=== PATIENT | female | born 1930 | race Caucasian/White ===

== ENCOUNTER 2021-09-27 20:07 | Inpatient (IN) | payer MEDICARE, BC ==
[~2021-09-27] VITALS: Ht 152.4 cm; Wt 62.2 kg
[2021-09-27 20:57] LABS: Eosinophils # (auto) 0.1 10 ^3/uL (0-0.8); Hemoglobin 10.5 g/dL (12.2-16.2); Lymphocytes # (auto) 1.1 10 ^3/uL (0.4-5.4); Monocytes # (auto) 0.4 10 ^3/uL (0-1.3); White Blood Cell 17.8 10^3/uL (4.4-10.8)
[2021-09-27 20:59] LABS: Basophils # (auto) 0 10 ^3/uL (0-0.2); Basophils % (auto) 0.1 % (0.0-2.0); Eosinophils % (auto) 0.4 % (0.0-7.0); Hematocrit 31.8 % (36.0-46.0); Lymphocytes % (auto) 6.4 % (10.0-50.0); Mean Corpuscular Hemoglobin 31.3 pg (28.0-32.0); Mean Corpuscular Volume 94.8 fL (80.0-100.0); Monocytes % (auto) 2.1 % (0.0-12.0); Neutrophils # (auto) 16.2 10 ^3/uL (1.6-8.6); Nucleated Red Blood Cells % 0.2 %; Red Blood Cells 3.36 10^6/uL (4.0-5.20)
[2021-09-27 21:13] LABS: Albumin 2.4 g/dL (3.4-5.0); Calcium 8.4 mg/dL (8.5-10.1); Potassium 4.1 mmol/L (3.5-5.1)
[2021-09-27 21:19] LABS: BUN/Creatinine Ratio 66.2; Bilirubin, Total 0.6 mg/dL (0.2-1.0); Total Protein 7.3 g/dL (6.4-8.2)
[2021-09-27] MEDS ORDERED: SODIUM CHLORIDE 0.9% 500 ML IV ONE (21:30)
[2021-09-27] MEDS ORDERED: AMIODARONE HCL (50 MG/ ML) 3 ML VIAL IV ONE (21:44)
[2021-09-27] MEDS ORDERED: AMIODARONE HCL 150 MG in D5W 5% 100 ML IV ONE (21:45)
[2021-09-27] MEDS ORDERED: AMIODARONE 450mg/250ml AE 250 ML IV ONE (21:46)
[2021-09-27] MEDS ORDERED: SODIUM CHLORIDE 0.9% 1,000 ML IV ONE (22:00)
[2021-09-27] MEDS ORDERED: fentaNYL CITRATE 100 MCG/2 ML VL IV ONE (22:45)
[2021-09-27] MEDS ORDERED: ONDANSETRON HCL 4 MG/2 ML VIAL IV ONE (22:45)
[2021-09-27] MEDS ORDERED: AZITHROMYCIN 500MG/ 250ML 250 ML IV ONE (22:45)
[2021-09-27] MEDS ORDERED: cefTRIAXone 1GM/50ML D5W 50 ML IV ONE (22:45)
[2021-09-27 23:13] LABS: Lactic Acid w/Reflex 2.8 mmol/L (0.4-2.0)
[2021-09-27] MEDS ORDERED: AMIODARONE 450mg/250ml AE 250 ML IV SCH (23:30)
[2021-09-28] MEDS: SODIUM CHLORIDE 0.9% 1,000 ML IV SCH ×3 (01:30→18:24)
[2021-09-28] MEDS ORDERED: ONDANSETRON HCL 4 MG/2 ML VIAL IV PRN (01:30)
[2021-09-28] MEDS ORDERED: DOCUSATE SOD 100 MG CAP PO PRN (01:30)
[2021-09-28] MEDS ORDERED: ACETAMINOPHEN 325 MG TAB PO PRN (01:30)
[2021-09-28 01:52] LABS: Urine Bacteria MANY /hpf (None Seen); Urine Blood Negative /uL (Negative); Urine Hyaline Cast FEW /lpf (0 - 2); Urine Mucus FEW (None Seen); Urine Specific Gravity 1.022 (1.001-1.035); Urine WBC 6 /hpf (0 - 5)
[2021-09-28] MEDS ORDERED: MORPHINE SULFATE INJECTION 2 MG/ML SYRG IV PRN (02:15)
[2021-09-28] MEDS ORDERED: NITROGLYCERIN 0.4 MG SL TAB SL PRN (02:15)
[2021-09-28] MEDS ORDERED: MEROPENEM 1GM IVPB 100 ML IV ONE ×2 (02:18→02:30)
[2021-09-28] MEDS: guaiFENesin-DM 100/10mg/5ml SYR PO PRN ×2 (02:39→12:18)
[2021-09-28 04:27] LABS: Basophils # (auto) 0 10 ^3/uL (0-0.2); Basophils % (auto) 0.2 % (0.0-2.0); Eosinophils # (auto) 0 10 ^3/uL (0-0.8); Eosinophils % (auto) 0.2 % (0.0-7.0); Hematocrit 25.7 % (36.0-46.0); Hemoglobin 8.7 g/dL (12.2-16.2); Lymphocytes # (auto) 0.6 10 ^3/uL (0.4-5.4); Lymphocytes % (auto) 3.7 % (10.0-50.0); Mean Corpuscular Hemoglobin 32.3 pg (28.0-32.0); Mean Corpuscular Hgb Conc. 33.9 g/dL (32.0-36.0); Mean Corpuscular Volume 95.2 fL (80.0-100.0); Monocytes # (auto) 0.4 10 ^3/uL (0-1.3); Monocytes % (auto) 2.3 % (0.0-12.0); Neutrophils # (auto) 15.5 10 ^3/uL (1.6-8.6); Neutrophils % (auto) 93.6 % (37.0-80.0); Nucleated Red Blood Cells % 0.2 %; Red Blood Cells 2.69 10^6/uL (4.0-5.20); Red Cell Distribution Width 15.8 % (11.8-14.3); White Blood Cell 16.5 10^3/uL (4.4-10.8)
[2021-09-28 04:37] LABS: Albumin 1.7 g/dL (3.4-5.0); Potassium 3.4 mmol/L (3.5-5.1)
[2021-09-28 04:41] LABS: BUN/Creatinine Ratio 79.5; Bilirubin, Total 0.5 mg/dL (0.2-1.0); Total Protein 5.2 g/dL (6.4-8.2)
[2021-09-28 05:00] VITALS: BP 95/59
[2021-09-28] MEDS: HYDROcodone-ACET 5/325MG TAB PO PRN (05:35)
[2021-09-28 06:01] VITALS: BP 95/59
[2021-09-28] MEDS: LEVOTHYROXINE SODIUM 88 MCG TAB PO SCH (06:33)
[2021-09-28] MEDS ORDERED: IBUP600T28 PO (06:43)
[2021-09-28] MEDS ORDERED: RISP1TAB PO (06:43)
[2021-09-28 08:44] VITALS: BP 107/71
[2021-09-28] MEDS ORDERED: AMIODARONE HCL 200 MG TAB PO ONE (08:45)
[2021-09-28] MEDS ORDERED: DIGOXIN 0.25 MG TAB PO ONE (08:45)
[2021-09-28] MEDS ORDERED: DEXTROSE (50%) 50ML SYRG IV PRN (09:00)
[2021-09-28] MEDS ORDERED: cefTRIAXone 1GM/50ML D5W 50 ML IV SCH (09:00)
[2021-09-28] MEDS ORDERED: AZITHROMYCIN 500MG/ 250ML 250 ML IV SCH (10:00)
[2021-09-28] MEDS: FAMOTIDINE (10MG/ML) 2ML VL IV SCH ×2 (10:12→21:45)
[2021-09-28] MEDS: ASPirin 81 mg TAB PO SCH (10:12)
[2021-09-28] MEDS: DIGOXIN (250MCG/ML) 2 ML AMPULE IV SCH ×3 (10:13→18:08)
[2021-09-28] MEDS: HEPARIN SODIUM (PORCINE) 5000 UNITS/ML 1ML VIAL SC SCH ×2 (10:29→21:47)
[2021-09-28] MEDS: MULTIPLE VITAMIN TAB PO SCH (10:33)
[2021-09-28] MEDS: ASCORBIC ACID 500 MG TAB PO SCH ×2 (10:33→21:46)
[2021-09-28] MEDS: ZINC SULFATE 220mg CAP or TAB PO SCH (10:33)
[2021-09-28] MEDS: InsuLIN REG 1unit/0.01ml Soln (100units/ml) SC SCH ×3 (11:30→22:00)
[2021-09-28] MEDS: ACCU-CHEK COMFORT CURVE STRIP VI SCH ×3 (12:06→22:19)
[2021-09-28] MEDS: PIPERACILLIN-TAZOB 3.375GM 100 ML IV SCH ×2 (14:15→21:46)
[2021-09-28] MEDS: ALBUTEROL SULF 2.5 MG/0.5ML(0.5%) NEB SOLN NEB PRN (14:54)
[2021-09-28 14:56] VITALS: BP 112/70
[2021-09-28 17:02] VITALS: BP 142/59
[2021-09-28] MEDS: FUROSEMIDE 20 MG/2 ML VIAL IV SCH (18:09)
[2021-09-28 22:00] VITALS: BP 98/51
[2021-09-29] VITALS (7 sets, daily range): BP systolic 91–104; BP diastolic 48–57
[2021-09-29] MEDS: guaiFENesin-DM 100/10mg/5ml SYR PO PRN ×2 (00:52→22:59)
[2021-09-29] MEDS ORDERED: DIGOXIN 0.25 MG TAB PO SCH ×2 (01:30→10:00)
[2021-09-29 02:08] LABS: Urine Bacteria NONE SEEN /hpf (None Seen); Urine Blood Negative /uL (Negative); Urine Hyaline Cast FEW /lpf (0 - 2); Urine Mucus FEW (None Seen); Urine Specific Gravity 1.022 (1.001-1.035); Urine WBC 5 /hpf (0 - 5)
[2021-09-29 02:26] LABS: Creatinine, Urine 52 mg/dL (30.0-125.0); Sodium Urine 22 mmol/L (40-220)
[2021-09-29] MEDS: PIPERACILLIN-TAZOB 3.375GM 100 ML IV SCH ×3 (06:28→22:31)
[2021-09-29] MEDS: FUROSEMIDE 20 MG/2 ML VIAL IV SCH ×2 (06:28→18:00)
[2021-09-29] MEDS: ACCU-CHEK COMFORT CURVE STRIP VI SCH ×4 (06:29→22:31)
[2021-09-29] MEDS: HYDROcodone-ACET 5/325MG TAB PO PRN ×2 (06:29→13:32)
[2021-09-29] MEDS: InsuLIN REG 1unit/0.01ml Soln (100units/ml) SC SCH ×4 (06:29→22:31)
[2021-09-29] MEDS: LEVOTHYROXINE SODIUM 88 MCG TAB PO SCH ×2 (06:29→09:42)
[2021-09-29 07:15] LABS: Potassium 3.4 mmol/L (3.5-5.1)
[2021-09-29 07:28] LABS: Albumin 1.8 g/dL (3.4-5.0); BUN/Creatinine Ratio 61.1; Bilirubin, Total 0.7 mg/dL (0.2-1.0); Calcium 7.3 mg/dL (8.5-10.1)
[2021-09-29 07:42] LABS: Hematocrit 25.6 % (36.0-46.0); Hemoglobin 8.8 g/dL (12.2-16.2); Mean Corpuscular Hemoglobin 32.8 pg (28.0-32.0); Mean Corpuscular Hgb Conc. 34.5 g/dL (32.0-36.0); Mean Corpuscular Volume 95.1 fL (80.0-100.0); Red Cell Distribution Width 15.4 % (11.8-14.3)
[2021-09-29 08:13] LABS: Basophils % (manual) 0 (0.0-2.0); Blast Cells 0; Eosinophils % (manual) 0 (0-7); Metamyelocytes % 0; Myelocytes % 0; Promyelocytes % 0; Reactive Lymphocytes 0
[2021-09-29] MEDS: ALBUTEROL SULF 2.5 MG/0.5ML(0.5%) NEB SOLN NEB PRN (09:22)
[2021-09-29] MEDS: ASPirin 81 mg TAB PO SCH (09:41)
[2021-09-29] MEDS: ASCORBIC ACID 500 MG TAB PO SCH ×2 (09:41→22:31)
[2021-09-29] MEDS: AMIODARONE HCL 200 MG TAB PO SCH (09:41)
[2021-09-29] MEDS: MULTIPLE VITAMIN TAB PO SCH (09:42)
[2021-09-29] MEDS: ZINC SULFATE 220mg CAP or TAB PO SCH (09:42)
[2021-09-29] MEDS: DIGOXIN 0.125 MG TAB PO SCH (09:43)
[2021-09-29] MEDS: FAMOTIDINE (10MG/ML) 2ML VL IV SCH ×2 (09:43→22:30)
[2021-09-29] MEDS: HEPARIN SODIUM (PORCINE) 5000 UNITS/ML 1ML VIAL SC SCH ×2 (09:50→22:32)
[2021-09-29 12:14] LABS: Band Neutrophils % (manual) 12; Lymphocytes % (manual) 5 (10.0-50.0); Monocytes % (manual) 6 (0-12)
[2021-09-29] MEDS: SODIUM CHLORIDE 0.9% 1,000 ML IV SCH (22:30)
[2021-09-29] MEDS: POTASSIUM CHL 20 Meq TABLET PO SCH (22:31)
[2021-09-30 05:00] VITALS: BP 117/40
[2021-09-30] MEDS: PIPERACILLIN-TAZOB 3.375GM 100 ML IV SCH ×2 (06:31→15:03)
[2021-09-30] MEDS: FUROSEMIDE 20 MG/2 ML VIAL IV SCH (06:31)
[2021-09-30] MEDS: ACCU-CHEK COMFORT CURVE STRIP VI SCH ×3 (06:31→17:24)
[2021-09-30] MEDS: InsuLIN REG 1unit/0.01ml Soln (100units/ml) SC SCH ×3 (06:32→17:00)
[2021-09-30] MEDS: guaiFENesin-DM 100/10mg/5ml SYR PO PRN (06:32)
[2021-09-30] MEDS: ALBUTEROL SULF 2.5 MG/0.5ML(0.5%) NEB SOLN NEB PRN (07:22)
[2021-09-30 09:08] VITALS: BP 105/50
[2021-09-30] MEDS: HYDROcodone-ACET 5/325MG TAB PO PRN ×2 (09:20→15:03)
[2021-09-30] MEDS: ZINC SULFATE 220mg CAP or TAB PO SCH (09:20)
[2021-09-30] MEDS: ASPirin 81 mg TAB PO SCH (09:20)
[2021-09-30] MEDS: FAMOTIDINE (10MG/ML) 2ML VL IV SCH (09:20)
[2021-09-30] MEDS: AMIODARONE HCL 200 MG TAB PO SCH (09:21)
[2021-09-30] MEDS: DIGOXIN 0.125 MG TAB PO SCH (09:21)
[2021-09-30] MEDS: POTASSIUM CHL 20 Meq TABLET PO SCH (09:21)
[2021-09-30] MEDS: MULTIPLE VITAMIN TAB PO SCH (09:22)
[2021-09-30] MEDS: ASCORBIC ACID 500 MG TAB PO SCH (09:22)
[2021-09-30] MEDS: HEPARIN SODIUM (PORCINE) 5000 UNITS/ML 1ML VIAL SC SCH (09:25)
[2021-09-30 13:00] VITALS: BP 106/66
[2021-09-30 16:44] VITALS: BP 117/40
[2021-09-30 17:07] VITALS: BP 137/63
== END 2021-09-30 18:00 | disposition hospice, home (50) | DRG 871 ==
LOC: ER 20:07 → TELE 09-28 02:17 → TELE-WESTW 09-28 04:21
PROVIDERS: ADMIT Nurse Practitioner Family; ATTEND Internal Medicine
PROC: 05HB33Z Insertion of Infusion Device into Right Basilic Vein, Percutaneous Approach (ICD-10-PCS; principal; 2021-09-28)
PROC: B54MZZA Ultrasonography of Right Upper Extremity Veins, Guidance (ICD-10-PCS; 2021-09-28)
DX: A41.9 Sepsis, unspecified organism (principal); J69.0 Pneumonitis due to inhalation of food and vomit; N17.0 Acute kidney failure with tubular necrosis; E44.0 Moderate protein-calorie malnutrition; D68.69 Other thrombophilia; I48.19 Other persistent atrial fibrillation; E88.09 Other disorders of plasma-protein metabolism, not elsewhere classified; F02.80 Dementia in other diseases classified elsewhere, unspecified severity, without behavioral disturbance, psychotic disturbance, mood disturbance, and anxiety; G30.9 Alzheimer's disease, unspecified; E86.0 Dehydration; E03.9 Hypothyroidism, unspecified; E86.9 Volume depletion, unspecified; D64.9 Anemia, unspecified; Z20.822 Contact with and (suspected) exposure to COVID-19; E11.65 Type 2 diabetes mellitus with hyperglycemia; Z68.26 Body mass index [BMI] 26.0-26.9, adult; Z85.3 Personal history of malignant neoplasm of breast; Z51.5 Encounter for palliative care; Z90.10 Acquired absence of unspecified breast and nipple
CPT/HCPCS: 36415; 71045; 76881; 80053; 81001; 82570; 82962; 83036; 83605; 83735; 84300; 84484; 85007; 85025; 85027; 85379; 87040; 87426; 92610; 93005; 94640; 96365; 96366; 96367; 96375; 97163; G0378; J0696; J2185; J2405; J2543; J3490; J7060

== ENCOUNTER 2021-12-26 14:03 | Inpatient (IN) | payer OTHER, MEDICARE, BC ==
[~2021-12-26] VITALS: Ht 152.4 cm; Wt 49.9 kg
[~2021-12-26 14:03] MED LIST: IBUP600T28 PO; RISP1TAB PO
[2021-12-26] MEDS ORDERED: cefTRIAXone 1GM/50ML D5W 50 ML IV ONE (14:45)
[2021-12-26 15:42] LABS: Basophils # (auto) 0 10 ^3/uL (0-0.2); Basophils % (auto) 0.6 % (0.0-2.0); Eosinophils # (auto) 0 10 ^3/uL (0-0.8); Eosinophils % (auto) 0.2 % (0.0-7.0); Hematocrit 35.4 % (36.0-46.0); Hemoglobin 12.3 g/dL (12.2-16.2); Lymphocytes # (auto) 0.7 10 ^3/uL (0.4-5.4); Lymphocytes % (auto) 10.3 % (10.0-50.0); Mean Corpuscular Hemoglobin 32.7 pg (28.0-32.0); Mean Corpuscular Hgb Conc. 34.7 g/dL (32.0-36.0); Mean Corpuscular Volume 94.3 fL (80.0-100.0); Monocytes # (auto) 0.3 10 ^3/uL (0-1.3); Monocytes % (auto) 4.8 % (0.0-12.0); Neutrophils # (auto) 5.4 10 ^3/uL (1.6-8.6); Neutrophils % (auto) 84.1 % (37.0-80.0); Nucleated Red Blood Cells % 0.2 %; Red Blood Cells 3.76 10^6/uL (4.0-5.20); Red Cell Distribution Width 16.5 % (11.8-14.3); White Blood Cell 6.5 10^3/uL (4.4-10.8)
[2021-12-26 16:00] LABS: Albumin 3.6 g/dL (3.4-5.0); Potassium 4.1 mmol/L (3.5-5.1)
[2021-12-26 16:03] LABS: BUN/Creatinine Ratio 32.7; Bilirubin, Total 0.5 mg/dL (0.2-1.0); Total Protein 7.6 g/dL (6.4-8.2)
[2021-12-26 16:20] LABS: INR 1.04 (0.9-1.15); Partial Thromboplastin Time 29.5 sec (23.6-33.0)
[2021-12-26] MEDS ORDERED: CLINDAMYCIN 300MG IV 50 ML IV ONE (17:15)
[2021-12-26] MEDS ORDERED: SODIUM CHLORIDE 0.9% 1,000 ML IV ONE (17:15)
[2021-12-26] MEDS ORDERED: NITROGLYCERIN 0.4 MG SL TAB SL PRN (18:30)
[2021-12-26] MEDS ORDERED: MORPHINE SULFATE INJECTION 2 MG/ML SYRG IV PRN (18:30)
[2021-12-26] MEDS ORDERED: VANCOMYCIN PER PHARMACY 0 MG IV SCH (21:00)
[2021-12-26] MEDS ORDERED: VANCOMYCIN 500 MG in D5W 5% 100 ML IV ONE (21:15)
[2021-12-26] MEDS ORDERED: ONDANSETRON HCL 4 MG/2 ML VIAL IV PRN (21:15)
[2021-12-26] MEDS ORDERED: ACETAMINOPHEN 325 MG TAB PO PRN (21:15)
[2021-12-26 22:00] VITALS: BP 118/78
[2021-12-26] MEDS ORDERED: PIPERACILLIN-TAZOB 3.375GM 100 ML IV SCH (22:00)
[2021-12-26] MEDS: risperiDONE 1 MG TAB PO SCH (23:55)
[2021-12-26] MEDS: PIPERACILLIN-TAZOB 2.25GM 50 ML IV SCH (23:55)
[2021-12-27] MEDS: SODIUM CHLORIDE 0.9% 1,000 ML IV SCH ×2 (00:11→14:40)
[2021-12-27 05:00] VITALS: BP 113/63
[2021-12-27 05:55] LABS: Basophils # (auto) 0 10 ^3/uL (0-0.2); Basophils % (auto) 0.9 % (0.0-2.0); Eosinophils # (auto) 0 10 ^3/uL (0-0.8); Eosinophils % (auto) 0.2 % (0.0-7.0); Hematocrit 33.4 % (36.0-46.0); Hemoglobin 11.4 g/dL (12.2-16.2); Lymphocytes # (auto) 0.8 10 ^3/uL (0.4-5.4); Lymphocytes % (auto) 18.8 % (10.0-50.0); Mean Corpuscular Hemoglobin 32.3 pg (28.0-32.0); Mean Corpuscular Hgb Conc. 34.1 g/dL (32.0-36.0); Mean Corpuscular Volume 94.8 fL (80.0-100.0); Monocytes # (auto) 0.2 10 ^3/uL (0-1.3); Neutrophils # (auto) 3.1 10 ^3/uL (1.6-8.6); Neutrophils % (auto) 74.1 % (37.0-80.0); Nucleated Red Blood Cells % 0.2 %; Red Blood Cells 3.52 10^6/uL (4.0-5.20); Red Cell Distribution Width 16.5 % (11.8-14.3); White Blood Cell 4.2 10^3/uL (4.4-10.8)
[2021-12-27 06:08] LABS: CRP High Sensitivity 0.82 mg/dL (< 0.3)
[2021-12-27] MEDS: PIPERACILLIN-TAZOB 2.25GM 50 ML IV SCH ×2 (06:26→14:39)
[2021-12-27 09:04] VITALS: BP 119/77
[2021-12-27 09:57] LABS: Calcium 8.8 mg/dL (8.5-10.1); Potassium 3.6 mmol/L (3.5-5.1)
[2021-12-27] MEDS: ENOXAPARIN SOD 30 MG/0.3 ML SYRINGE SC SCH (10:04)
[2021-12-27 10:12] LABS: BUN/Creatinine Ratio 29.2
[2021-12-27 13:00] VITALS: BP 150/72
[2021-12-27] MEDS: VANCOMYCIN 500 MG in D5W 5% 100 ML IV SCH (17:05)
[2021-12-27 18:00] VITALS: BP 172/82
[2021-12-27] MEDS: hydrALAZINE HCL 20 MG/ML VL IV PRN (18:35)
[2021-12-27 21:53] VITALS: BP 108/66
[2021-12-28] MEDS: PIPERACILLIN-TAZOB 2.25GM 50 ML IV SCH ×4 (00:05→23:31)
[2021-12-28] MEDS: risperiDONE 1 MG TAB PO SCH ×2 (00:05→23:34)
[2021-12-28 05:00] VITALS: BP 111/51
[2021-12-28] MEDS: SODIUM CHLORIDE 0.9% 1,000 ML IV SCH (05:43)
[2021-12-28 05:45] LABS: Basophils # (auto) 0.1 10 ^3/uL (0-0.2); Basophils % (auto) 1.1 % (0.0-2.0); Eosinophils # (auto) 0 10 ^3/uL (0-0.8); Eosinophils % (auto) 0.2 % (0.0-7.0); Hematocrit 32.6 % (36.0-46.0); Hemoglobin 11.5 g/dL (12.2-16.2); Lymphocytes # (auto) 0.7 10 ^3/uL (0.4-5.4); Lymphocytes % (auto) 13.4 % (10.0-50.0); Mean Corpuscular Hemoglobin 33.1 pg (28.0-32.0); Mean Corpuscular Hgb Conc. 35.3 g/dL (32.0-36.0); Mean Corpuscular Volume 93.8 fL (80.0-100.0); Monocytes # (auto) 0.2 10 ^3/uL (0-1.3); Neutrophils # (auto) 4.4 10 ^3/uL (1.6-8.6); Neutrophils % (auto) 81.3 % (37.0-80.0); Red Blood Cells 3.47 10^6/uL (4.0-5.20); Red Cell Distribution Width 16.6 % (11.8-14.3); White Blood Cell 5.4 10^3/uL (4.4-10.8)
[2021-12-28 06:13] LABS: Potassium 3.4 mmol/L (3.5-5.1)
[2021-12-28 06:23] LABS: BUN/Creatinine Ratio 31.7; Calcium 8.1 mg/dL (8.5-10.1)
[2021-12-28 09:00] VITALS: BP 134/75
[2021-12-28] MEDS: SOD CHL 0.9%/ KCL 20MEQ 1,000 ML IV SCH (09:42)
[2021-12-28] MEDS: ENOXAPARIN SOD 30 MG/0.3 ML SYRINGE SC SCH (09:42)
[2021-12-28 13:00] VITALS: BP 146/67
[2021-12-28] MEDS: VANCOMYCIN 500 MG in D5W 5% 100 ML IV SCH (16:30)
[2021-12-28 17:00] VITALS: BP_SYST 136; BP_SYST 146; BP_DIAS 67; BP_DIAS 87
[2021-12-28] MEDS: Ensure HIGH Protein Chocolate 8oz Bottle PO SCH (18:39)
[2021-12-28 22:00] VITALS: BP 116/59
[2021-12-29 04:27] VITALS: BP 152/87
[2021-12-29 05:53] LABS: BUN/Creatinine Ratio 29.8; Calcium 7.8 mg/dL (8.5-10.1); Magnesium 2.2 mg/dL (1.6-2.6); Potassium 3.4 mmol/L (3.5-5.1)
[2021-12-29] MEDS: PIPERACILLIN-TAZOB 2.25GM 50 ML IV SCH ×3 (06:57→22:09)
[2021-12-29] MEDS: SOD CHL 0.9%/ KCL 20MEQ 1,000 ML IV SCH ×3 (06:57→21:51)
[2021-12-29] MEDS: Ensure HIGH Protein Chocolate 8oz Bottle PO SCH ×2 (08:00→18:00)
[2021-12-29 09:00] VITALS: BP 158/71
[2021-12-29] MEDS: ENOXAPARIN SOD 30 MG/0.3 ML SYRINGE SC SCH (09:26)
[2021-12-29] MEDS: hydrALAZINE HCL 20 MG/ML VL IV PRN (09:29)
[2021-12-29 13:00] VITALS: BP 123/65
[2021-12-29] MEDS: VANCOMYCIN 500 MG in D5W 5% 100 ML IV SCH (16:34)
[2021-12-29] MEDS ORDERED: LEVO88TA4 PO (16:36)
[2021-12-29] MEDS ORDERED: VENL-192 PO (16:37)
[2021-12-29] MEDS ORDERED: ONDA-155 PO (16:39)
[2021-12-29] MEDS ORDERED: RIS1T PO (16:39)
[2021-12-29] MEDS ORDERED: FERRTAB18 OR (16:45)
[2021-12-29] MEDS ORDERED: LORA0.5T20 PO (16:45)
[2021-12-29] MEDS ORDERED: BRIM0.2S2 OP (16:45)
[2021-12-29] MEDS ORDERED: MULT-1018 PO (16:45)
[2021-12-29] MEDS ORDERED: TRIA0.1P17 TOP (16:45)
[2021-12-29 17:00] VITALS: BP 125/70
[2021-12-29 22:00] VITALS: BP 95/56
[2021-12-29] MEDS: risperiDONE 1 MG TAB PO SCH (22:10)
[2021-12-30 05:00] VITALS: BP 136/68
[2021-12-30] MEDS: PIPERACILLIN-TAZOB 2.25GM 50 ML IV SCH ×3 (05:02→21:33)
[2021-12-30 05:53] LABS: Calcium 8.1 mg/dL (8.5-10.1); Potassium 3.5 mmol/L (3.5-5.1)
[2021-12-30 09:15] VITALS: BP 115/72
[2021-12-30] MEDS: Ensure HIGH Protein Chocolate 8oz Bottle PO SCH ×2 (09:20→19:03)
[2021-12-30] MEDS: ENOXAPARIN SOD 30 MG/0.3 ML SYRINGE SC SCH (09:46)
[2021-12-30] MEDS: VANCOMYCIN 500 MG in D5W 5% 100 ML IV SCH (13:16)
[2021-12-30 14:35] VITALS: BP 129/56
[2021-12-30 18:05] VITALS: BP 112/56
[2021-12-30] MEDS: Juven Fruit Punch Powder PACKET 28.8gm PO SCH (19:03)
[2021-12-30] MEDS: risperiDONE 1 MG TAB PO SCH (21:33)
[2021-12-30 22:00] VITALS: BP 121/58
[2021-12-31 04:50] LABS: Basophils # (auto) 0.1 10 ^3/uL (0-0.2); Basophils % (auto) 1.4 % (0.0-2.0); Eosinophils # (auto) 0 10 ^3/uL (0-0.8); Eosinophils % (auto) 0.7 % (0.0-7.0); Hematocrit 31.4 % (36.0-46.0); Hemoglobin 10.8 g/dL (12.2-16.2); Lymphocytes % (auto) 27.2 % (10.0-50.0); Mean Corpuscular Hemoglobin 32.6 pg (28.0-32.0); Mean Corpuscular Hgb Conc. 34.3 g/dL (32.0-36.0); Mean Corpuscular Volume 94.9 fL (80.0-100.0); Monocytes # (auto) 0.2 10 ^3/uL (0-1.3); Monocytes % (auto) 6.3 % (0.0-12.0); Neutrophils # (auto) 2.4 10 ^3/uL (1.6-8.6); Neutrophils % (auto) 64.4 % (37.0-80.0); Nucleated Red Blood Cells % 0.2 %; Red Blood Cells 3.31 10^6/uL (4.0-5.20); Red Cell Distribution Width 17.1 % (11.8-14.3); White Blood Cell 3.8 10^3/uL (4.4-10.8)
[2021-12-31 05:00] VITALS: BP 131/60
[2021-12-31 05:09] LABS: Potassium 4.3 mmol/L (3.5-5.1)
[2021-12-31 05:15] LABS: BUN/Creatinine Ratio 64.4; Calcium 7.8 mg/dL (8.5-10.1)
[2021-12-31] MEDS: PIPERACILLIN-TAZOB 2.25GM 50 ML IV SCH ×3 (05:24→22:42)
[2021-12-31 09:00] VITALS: BP 105/40
[2021-12-31] MEDS: SOD CHL 0.9%/ KCL 20MEQ 1,000 ML IV SCH (09:39)
[2021-12-31] MEDS: VANCOMYCIN 500 MG in D5W 5% 100 ML IV SCH (09:39)
[2021-12-31] MEDS: Juven Fruit Punch Powder PACKET 28.8gm PO SCH ×2 (09:39→18:20)
[2021-12-31] MEDS: Ensure HIGH Protein Chocolate 8oz Bottle PO SCH ×2 (09:39→18:20)
[2021-12-31] MEDS: ENOXAPARIN SOD 30 MG/0.3 ML SYRINGE SC SCH (09:40)
[2021-12-31 13:00] VITALS: BP 126/57
[2021-12-31] MEDS ORDERED: LEVOTHYROXINE SODIUM 100 MCG/5 ML INJ IV ONE (13:45)
[2021-12-31 17:33] VITALS: BP 138/79
[2021-12-31 21:59] VITALS: BP 150/80
[2021-12-31] MEDS: risperiDONE 1 MG TAB PO SCH (22:43)
[2022-01-01 04:10] LABS: Hematocrit 32.2 % (36.0-46.0); Hemoglobin 11.1 g/dL (12.2-16.2)
[2022-01-01] MEDS: VANCOMYCIN 500 MG in D5W 5% 100 ML IV SCH ×2 (04:12→23:59)
[2022-01-01 04:18] LABS: Potassium 4.4 mmol/L (3.5-5.1)
[2022-01-01 04:23] LABS: BUN/Creatinine Ratio 48.9; Calcium 8.6 mg/dL (8.5-10.1); Magnesium 2.4 mg/dL (1.6-2.6)
[2022-01-01 05:04] VITALS: BP 139/80
[2022-01-01] MEDS: PIPERACILLIN-TAZOB 2.25GM 50 ML IV SCH (05:58)
[2022-01-01] MEDS: Ensure HIGH Protein Chocolate 8oz Bottle PO SCH ×2 (08:00→17:41)
[2022-01-01] MEDS: Juven Fruit Punch Powder PACKET 28.8gm PO SCH ×2 (08:00→17:41)
[2022-01-01 09:00] VITALS: BP 112/64
[2022-01-01] MEDS: ENOXAPARIN SOD 30 MG/0.3 ML SYRINGE SC SCH (09:34)
[2022-01-01] MEDS ORDERED: LEVOTHYROXINE SODIUM 100 MCG TAB PO ONE (09:45)
[2022-01-01] MEDS ORDERED: ERGOCALCIFEROL 50,000 UNIT(1.25MG) CAP PO ONE (09:45)
[2022-01-01] MEDS ORDERED: LEVOTHYROXINE SODIUM 100 MCG/5 ML INJ IV SCH (10:00)
[2022-01-01] MEDS ORDERED: CEFEPIME 1 GM in SODIUM CHL 0.9% 50 ML IV SCH (10:00)
[2022-01-01 11:29] LABS: INR 1.18 (0.9-1.15); Partial Thromboplastin Time 36.2 sec (23.6-33.0)
[2022-01-01 13:00] VITALS: BP 124/69
[2022-01-01] MEDS ORDERED: LIDOCAINE 1% (LOCAL ANESTH.) PF 5ml SDV ID ONE (13:15)
[2022-01-01] MEDS ORDERED: CHOL20007 PO (13:30)
[2022-01-01] MEDS ORDERED: LEV150T PO (13:30)
[2022-01-01 17:00] VITALS: BP 126/65
[2022-01-01 21:43] VITALS: BP 123/69
[2022-01-01] MEDS: risperiDONE 1 MG TAB PO SCH (22:26)
[2022-01-01] MEDS: SODIUM CHLOR 0.9% PF (SALINE LOCK) 10ML VIAL/SYR IV SCH (22:26)
[2022-01-02 05:00] VITALS: BP 121/62
[2022-01-02] MEDS ORDERED: LEVOTHYROXINE SODIUM 100 MCG TAB PO SCH ×2 (07:00)
[2022-01-02 08:00] VITALS: BP 102/57
[2022-01-02] MEDS: Ensure HIGH Protein Chocolate 8oz Bottle PO SCH ×2 (08:00→17:06)
[2022-01-02] MEDS: Juven Fruit Punch Powder PACKET 28.8gm PO SCH ×2 (08:00→17:06)
[2022-01-02 09:15] LABS: Calcium 8.7 mg/dL (8.5-10.1); Potassium 3.8 mmol/L (3.5-5.1)
[2022-01-02 09:18] LABS: BUN/Creatinine Ratio 33.3
[2022-01-02] MEDS ORDERED: CEFEPIME 1 GM in SODIUM CHL 0.9% 50 ML IV SCH (10:00)
[2022-01-02] MEDS: SODIUM CHLOR 0.9% PF (SALINE LOCK) 10ML VIAL/SYR IV SCH (10:21)
[2022-01-02] MEDS: ENOXAPARIN SOD 30 MG/0.3 ML SYRINGE SC SCH (10:26)
[2022-01-02 12:00] VITALS: BP 124/73
[2022-01-02 16:00] VITALS: BP 144/60
[2022-01-02 18:11] VITALS: BP 158/71
[2022-01-02] MEDS ORDERED: VANCOMYCIN 750mg/250ml 250 ML IV SCH (20:00)
[2022-01-03] MEDS ORDERED: LEVOTHYROXINE SODIUM 100 MCG TAB PO SCH (07:00)
[2022-01-03] MEDS ORDERED: CHOLECALCIFEROL (VITD3) 2,000 UNIT CAP/TAB PO SCH (10:00)
== END 2022-01-02 22:00 | DRG 539 ==
LOC: ER 14:03 → OVERFLOW 18:19 → CENTRAL 21:35
PROVIDERS: ADMIT Internal Medicine; ATTEND Internal Medicine
PROC: 02HV33Z Insertion of Infusion Device into Superior Vena Cava, Percutaneous Approach (ICD-10-PCS; principal; 2022-01-01)
DX: M86.171 Other acute osteomyelitis, right ankle and foot (principal); L89.514 Pressure ulcer of right ankle, stage 4; L89.624 Pressure ulcer of left heel, stage 4; L03.115 Cellulitis of right lower limb; E87.1 Hypo-osmolality and hyponatremia; L97.419 Non-pressure chronic ulcer of right heel and midfoot with unspecified severity; R62.7 Adult failure to thrive; F02.80 Dementia in other diseases classified elsewhere, unspecified severity, without behavioral disturbance, psychotic disturbance, mood disturbance, and anxiety; E86.0 Dehydration; E03.9 Hypothyroidism, unspecified; E87.6 Hypokalemia; E55.9 Vitamin D deficiency, unspecified; Z66 Do not resuscitate; Z20.822 Contact with and (suspected) exposure to COVID-19; L89.210 Pressure ulcer of right hip, unstageable; G30.9 Alzheimer's disease, unspecified; F41.9 Anxiety disorder, unspecified; F32.A Depression, unspecified; K21.9 Gastro-esophageal reflux disease without esophagitis; F01.50 Vascular dementia, unspecified severity, without behavioral disturbance, psychotic disturbance, mood disturbance, and anxiety; L97.529 Non-pressure chronic ulcer of other part of left foot with unspecified severity; Z51.5 Encounter for palliative care; Z85.3 Personal history of malignant neoplasm of breast; Z90.710 Acquired absence of both cervix and uterus; Z90.49 Acquired absence of other specified parts of digestive tract
CPT/HCPCS: 36415; 36569; 71045; 73700; 78315; 80048; 80053; 80202; 82306; 82565; 83605; 83735; 84436; 84443; 84481; 84484; 85014; 85018; 85025; 85610; 85652; 85730; 86141; 87040; 93925; 96365; 96368; G0378; J0696; J2543; J3490; J7060